=== PATIENT | female | born 1965 | race Caucasian/White ===

== ENCOUNTER → 2020-06-09 10:58 | Outpatient (CLI) | payer BC ==
[~2020-06-09 10:58] MED LIST: ANAPROX275 MG PO; ATARAX25 MG PO; B COMPLEX1 EACH; CATAFLAM50 MG PO; COMPLEX B-1000.4 MG PO; CORTISPORIN EAR10 M1 OT; IBU600 MG PO; IBUPROFEN600 MG PO; MEDROL4 MG PO; METROGEL-VAGINA70 GM VG; MULTI VITAMIN1 EACH; OSTERA TABLET1 EACH; OSTERA TABLET1 EACH PO; PRILOSEC20 MG PO; VITAMINA; ZITHROMAX500 MG PO; ZYRTEC10 MG PO
== END | disposition home or self-care (01) ==
LOC: LAB 10:58
PROVIDERS: ATTEND Obstetrics & Gynecology Gynecology
DX: D64.89 Other specified anemias (principal); E55.9 Vitamin D deficiency, unspecified; E78.49 Other hyperlipidemia; Z12.11 Encounter for screening for malignant neoplasm of colon; N39.0 Urinary tract infection, site not specified

== ENCOUNTER 2020-06-12 05:47 | Day surgery (SDC) | payer BC ==
[~2020-06-12 05:47] MED LIST changes: -IBU600 MG PO; -IBUPROFEN600 MG PO
[2020-06-12] MEDS ORDERED: IBU600 MG PO (08:41)
[2020-06-12] MEDS ORDERED: IBUPROFEN600 MG PO (10:22)
== END 2020-06-12 15:15 | disposition home or self-care (01) ==
LOC: CIR.AMB 05:47
PROVIDERS: ATTEND Obstetrics & Gynecology Gynecology
DX: N84.0 Polyp of corpus uteri (principal); Z20.828 Contact with and (suspected) exposure to other viral communicable diseases